=== PATIENT | female | born 1970 | race Hispanic/Latino ===

== ENCOUNTER → 2022-01-23 | Outpatient (CLI) | payer OTHER ==
[~2022-01-23] VITALS: Ht 7.6 cm; Wt 118.8 kg
[~2022-01-23] MED LIST: ABAT125S SQ; ALPR1TAB7 PO; DICL2100G TP; DOXY-336 PO; FLUO40CA49 PO; FOLI1TAB15 PO; GABA-531 PO; LISI2.5T13 PO
== END | disposition home or self-care (01) ==
LOC: DTH 09:03
PROVIDERS: ATTEND Pediatrics
DX: Z71.3 Dietary counseling and surveillance (principal); K21.9 Gastro-esophageal reflux disease without esophagitis; K76.0 Fatty (change of) liver, not elsewhere classified; G47.33 Obstructive sleep apnea (adult) (pediatric); E66.01 Morbid (severe) obesity due to excess calories; Z68.41 Body mass index [BMI] 40.0-44.9, adult
CPT/HCPCS: 97802

== ENCOUNTER 2022-02-19 10:03 | Day surgery (SDC) | payer OTHER ==
[2022-02-19] VITALS (7 sets, daily range): BP systolic 92–153; BP diastolic 50–90
[~2022-02-19 10:03] MED LIST changes: +0.9%NACL 1000ML 1,000 ML IV ONE; -ABAT125S SQ; -ALPR1TAB7 PO; +CYCL-309 PO; -DOXY-336 PO; -FLUO40CA49 PO; -FOLI1TAB15 PO; -GABA-531 PO; -LISI2.5T13 PO; +PREG100C PO
[2022-02-19] MEDS ORDERED: ONDANSETRON 4MG INJ ONE (12:21)
[2022-02-19] MEDS ORDERED: PROPOFOL 10 MG/ML 20ML VIAL IV ONE (12:21)
[2022-02-19] MEDS ORDERED: FENTANYL CITRATE PF 50 MCG/1 ML 2ML VIAL ONE (12:22)
== END 2022-02-19 13:15 | disposition home or self-care (01) ==
LOC: DAH 10:03 → ENDO 10:03
PROVIDERS: ATTEND Surgery
DX: R12 Heartburn (principal); K29.70 Gastritis, unspecified, without bleeding; I10 Essential (primary) hypertension; F32.A Depression, unspecified; F41.9 Anxiety disorder, unspecified; G47.33 Obstructive sleep apnea (adult) (pediatric); E66.9 Obesity, unspecified; M79.7 Fibromyalgia; Z68.42 Body mass index [BMI] 45.0-49.9, adult; Z80.0 Family history of malignant neoplasm of digestive organs; Z98.891 History of uterine scar from previous surgery; Z90.49 Acquired absence of other specified parts of digestive tract; Z98.890 Other specified postprocedural states
CPT/HCPCS: 87635; 43239; 81025; 88305; 88342; 88341; C9803; J3010; J7030; J2704; J2405; A4620; A4215 ×2; A4223; A4222; A4221; A4606

== ENCOUNTER → 2022-03-13 | Outpatient (CLI) | payer OTHER ==
[~2022-03-13] MED LIST changes: -0.9%NACL 1000ML 1,000 ML IV ONE
== END | disposition home or self-care (01) ==
LOC: DTH 09:17
PROVIDERS: ATTEND Surgery
DX: Z71.3 Dietary counseling and surveillance (principal); K76.0 Fatty (change of) liver, not elsewhere classified; K21.9 Gastro-esophageal reflux disease without esophagitis; G47.33 Obstructive sleep apnea (adult) (pediatric); E66.01 Morbid (severe) obesity due to excess calories; Z68.41 Body mass index [BMI] 40.0-44.9, adult
CPT/HCPCS: 97803

== ENCOUNTER → 2023-02-04 | Outpatient (CLI) | payer OTHER ==
[2023-02-04 16:32] LABS: BASOPHILS % (AUTO) 0.1 % (0.0-5.0); EOSINOPHILS % (AUTO) 2.7 % (0.0-8.0); HEMATOCRIT 39.4 % (36-48); LYMPHOCYTES % (AUTO) 30.4 % (21.0-51.0); MEAN CORPUSCULAR HEMOGLOBIN 29.8 pg (27.0-33.0); MEAN CORPUSCULAR HGB CONC 33.2 g/dL (32.0-36.0); MEAN CORPUSCULAR VOLUME 89.7 fL (79-99); MONOCYTES % (AUTO) 11.1 % (3.0-13.0); NEUTROPHILS % (AUTO) 55.4 % (40.0-77.0); PLATELET COUNT (AUTO) 172 K/uL (130-400); RED BLOOD CELL COUNT(AUTO) 4.39 MIL/uL (4.00-5.50); RED CELL DISTRIBUTION WIDTH 15.1 % (11.0-15.5); WHITE BLOOD COUNT (AUTO) 6.7 K/uL (4.8-10.8)
[2023-02-04 16:57] LABS: ALBUMIN 3.7 g/dL (3.5-5.0); CREATININE 0.7 mg/dL (0.5-1.5); POTASSIUM 4.3 mmol/L (3.5-5.1); T4 (THYROXINE) 9.9 ug/dL (4.7-13.3); THYROID STIMULATING HORMONE 2.22 uIU/mL (0.36-3.74); TOTAL PROTEIN, SERUM 6.8 g/dL (6.0-8.3)
== END | disposition home or self-care (01) ==
LOC: LAB 14:08
PROVIDERS: ATTEND Physician Assistant
DX: I95.1 Orthostatic hypotension (principal); E03.9 Hypothyroidism, unspecified
CPT/HCPCS: 36415; 80053; 84436; 84443; 85025

== ENCOUNTER → 2023-12-25 | Outpatient (CLI) | payer OTHER | END | disposition home or self-care (01) | LOC: SHCH 07:34 | PROVIDERS: ATTEND Internal Medicine Cardiovascular Disease | DX: I95.1 Orthostatic hypotension (principal) | CPT/HCPCS: 93306 ==

== ENCOUNTER 2024-04-14 07:32 | Day surgery (SDC) | payer OTHER ==
[2024-04-14] VITALS (8 sets, daily range): BP systolic 92–101; BP diastolic 48–65; PULSE 55–72; RESP 15–17
[~2024-04-14] VITALS: Ht 160 cm; Wt 72.6 kg
[2024-04-14] MEDS ORDERED: BISA-151 PO (07:45)
[2024-04-14] MEDS ORDERED: PHEN-615 PO (07:45)
[2024-04-14] MEDS ORDERED: DOCU100C33 PO (07:45)
[2024-04-14] MEDS ORDERED: DULO30CA52 PO (07:45)
[2024-04-14] MEDS: 0.9%NACL 1000ML 1,000 ML IV ONE (07:52)
[2024-04-14] MEDS ORDERED: PROPOFOL 10 MG/ML 20ML VIAL IV ONE (09:30)
== END 2024-04-14 10:55 | disposition home or self-care (01) ==
LOC: DAH 07:32 → ENDO 07:32
PROVIDERS: ATTEND Surgery
DX: R12 Heartburn (principal); K29.50 Unspecified chronic gastritis without bleeding; K22.89 Other specified disease of esophagus; I10 Essential (primary) hypertension; F41.9 Anxiety disorder, unspecified; F32.A Depression, unspecified; E66.9 Obesity, unspecified; K59.00 Constipation, unspecified; K91.1 Postgastric surgery syndromes; K76.0 Fatty (change of) liver, not elsewhere classified; Z98.84 Bariatric surgery status; Z90.49 Acquired absence of other specified parts of digestive tract; Z79.899 Other long term (current) drug therapy
CPT/HCPCS: 81025; 43239; J7030; J2704; A4620; A4215 ×2; A4223; A4222; A4221; A4663; A4606; J3490